=== PATIENT | male | born 1975 | race Caucasian/White ===

== ENCOUNTER 2021-02-18 23:32 | Emergency (ER) | payer SELFPAY ==
[2021-02-18 23:37] VITALS: BP 128/91; RESP 18; O2SAT 96; BMI 32.5
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
[2021-02-19 01:19] VITALS: BP 116/82; PULSE 62; RESP 19; O2SAT 100
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
== END 2021-02-19 01:19 | disposition home or self-care (01) ==
PROVIDERS: Emergency Provider Emergency Medicine
DX: S06.0X0A Concussion without loss of consciousness, initial encounter (principal); S00.01XA Abrasion of scalp, initial encounter; S00.81XA Abrasion of other part of head, initial encounter; V89.2XXA Person injured in unspecified motor-vehicle accident, traffic, initial encounter
CPT/HCPCS: 70450; 72125; 99282

== ENCOUNTER 2024-02-04 17:05 | Outpatient (CLI) | payer OTHER, MEDICAID, SELFPAY ==
--- NOTE | 2024-02-04 17:12 | XRR_ITS ---
PROCEDURE INFORMATION: Exam: XR Left Ribs Exam date and time: 02/04/2024 5:17 PM Age: 48 years old Clinical indication: Injury or trauma; Rib area, left side; Blunt trauma; Injury details: Got kicked by horse 3 days ago, left posterior rib pain; Additional info: Kicked by a horse TECHNIQUE: Imaging protocol: Radiologic exam of the left ribs. Views: 2 views. COMPARISON: CT cervical spin wo con* [id number] 02/18/2021 11:58 PM FINDINGS: Heart size is normal. Mediastinal contours are normal. There is linear atelectasis or scarring at the left lung base. Lungs are otherwise clear. No pleural effusion or pneumothorax is identified. No definite rib fracture is noted on the left. XR/XR ribs LT 2V* [id number] IMPRESSION: Linear atelectasis or scarring left lung base.
== END 2024-02-04 17:06 | disposition home or self-care (01) ==
LOC: RAD 17:09
PROVIDERS: Visit Provider Nurse Practitioner Family
DX: R07.81 Pleurodynia (principal); W55.12XA Struck by horse, initial encounter; J98.11 Atelectasis
CPT/HCPCS: 71100